=== PATIENT | female | born 1995 | race African-American/Black ===

== ENCOUNTER 2017-09-20 14:10 | Emergency (ER) | payer OTHER ==
[~2017-09-20] VITALS: Ht 162.6 cm; Wt 90.8 kg
[2017-09-20 14:13] VITALS: BP 141/89
[2017-09-20] MEDS ORDERED: GLUCOTROL5 MG PO (14:25)
[2017-09-20] MEDS ORDERED: SERTRALINE HCL25 MG PO (14:38)
[2017-09-20] MEDS ORDERED: MOTRIN600 MG PO (14:58)
== END 2017-09-20 15:16 | disposition home or self-care (01) ==
LOC: EME 14:10
DX: S63.501A Unspecified sprain of right wrist, initial encounter (principal); W01.0XXA Fall on same level from slipping, tripping and stumbling without subsequent striking against object, initial encounter; Y93.89 Activity, other specified; Z88.8 Allergy status to other drugs, medicaments and biological substances
CPT/HCPCS: 73090; 73130; 99281; 99284

== ENCOUNTER 2017-11-17 08:19 | Emergency (ER) | payer OTHER ==
[~2017-11-17] VITALS: Ht 162.6 cm; Wt 90.9 kg
[~2017-11-17 08:19] MED LIST: GLUCOTROL5 MG PO; MOTRIN600 MG PO; SERTRALINE HCL25 MG PO
[2017-11-17 09:42] LABS: BASOPHIL (%) 0.2 % (0-1); EOSINOPHIL (%) 2.5 % (0-5); EOSINOPHIL COUNT 0.3 K/uL (0-0.3); HEMATOCRIT 40.9 % (36.0-46.0); IMMATURE GRANULOCYTE (%) 0.6 % (0.0-0.7); LYMPHOCYTE (%) 15.1 % (15-42); LYMPHOCYTE COUNT 1.9 K/uL (1.0-2.8); MCH 27.6 PG (29.0-34.0); MCHC 31.8 G/DL (30.0-36.0); MCV 86.8 FL (83-99); MONOCYTE (%) 6.1 % (3-12); MONOCYTE COUNT 0.8 K/uL (0-0.8); NEUTROPHIL (%) 75.5 % (45-76); NEUTROPHIL COUNT 9.3 K/uL (1.8-6.4); PLATELET COUNT 281 K/uL (156-360); RBC DIS.WIDTH-CV 15.7 % (11.8-14.6); RBC DIS.WIDTH-SD 49.7 % (39-53); RED BLOOD COUNT 4.71 M/uL (3.80-5.20); WHITE BLOOD COUNT 12.3 K/uL (4.1-10.2)
[2017-11-17 09:52] LABS: CHLORIDE 106 mEq/L (99-109); POTASSIUM 4.1 mEq/L (3.7-5.4); SODIUM 140 mEq/L (136-147)
[2017-11-17 09:54] LABS: GLUCOSE 130 mg/dL (70-99)
[2017-11-17 09:58] LABS: CREATININE 0.8 mg/dL (0.6-1.3); GFR ESTIMATE (CALCULATED) > 59 mL/min/
[2017-11-17 09:59] LABS: UREA NITROGEN (BUN) 7 mg/dL (9-23)
[2017-11-17] MEDS ORDERED: BENTYL20 MG PO (11:15)
[2017-11-17] MEDS ORDERED: IMODIUM A-D2 M2 PO (11:15)
[2017-11-17] MEDS ORDERED: ZOFRAN4 MG PO (11:15)
[2017-11-17 12:16] VITALS: BP 116/75
== END 2017-11-17 12:16 | disposition home or self-care (01) ==
LOC: EME 08:19
PROVIDERS: Emergency Medicine
DX: R11.2 Nausea with vomiting, unspecified (principal); R10.9 Unspecified abdominal pain; R19.7 Diarrhea, unspecified; E11.9 Type 2 diabetes mellitus without complications; J45.909 Unspecified asthma, uncomplicated
CPT/HCPCS: 80048; 85025; 99281; 99284; J1885; J2405; J7030